=== PATIENT | male | born 2000 | race Caucasian/White ===

== ENCOUNTER 2025-03-23 20:24 | Emergency (ER) | payer OTHER, SELFPAY ==
[2025-03-23 20:25] VITALS: BP 117/81; PULSE 122; RESP 17; TEMP 36.8; O2SAT 96; BMI 22.2
--- NOTE | 2025-03-23 21:13 | ED.RN ---
intermittent chest pain for the last few weeks. the last two days have been worse. 6/10 constricting chest pain with intermittent shortness of breath both worsening with exertion or singing.
[2025-03-23 21:25] VITALS: BP 105/69; PULSE 68; RESP 16; O2SAT 95
[2025-03-23 21:58] VITALS: O2SAT 95
--- NOTE | 2025-03-23 21:58 | RAD_ITS ---
PROCEDURE: CHEST 1 VIEW (PORTABLE) 03/23/2025 REASON FOR EXAM: CHEST PAIN TECHNIQUE: Frontal view of the chest. COMPARISON: None. FINDINGS: Hardware: No internal hardware. Heart: Normal size Lungs: Clear and expanded Bones: No aggressive bony process Other: RAD/Chest 1 View (Portable) IMPRESSION: No acute process detected. Reading Location: [facility]
--- NOTE | 2025-03-23 21:58 | EKG12_ITS ---
Test Reason : CP Blood Pressure : */* mmHG Vent. Rate : 88 BPM Atrial Rate : 88 BPM P-R Int : 162 ms QRS Dur : 86 ms QT Int : 332 ms P-R-T Axes : 84 121 68 degrees QTcB Int : 401 ms Normal sinus rhythm Right axis deviation Possible Right ventricular hypertrophy Abnormal ECG Confirmed by MG VAZQUEZ, ZOË ([id number]), business editor NAUN MONROE ([id number]) on 03/24/2025 1:10:03 PM Referred By: THI Confirmed By: ZOË HOLLIDAY MD
[2025-03-23 22:00] VITALS: BP 105/75; PULSE 57; RESP 15; O2SAT 96
--- NOTE | 2025-03-23 22:01 | PCA ---
NO OLD EKG
[2025-03-23 22:11] LABS: Hematocrit 42.9 % (40-54); Hemoglobin 15.0 g/dL (13.0-16.5); Immature Granulocytes Count 0.010 X10^3/uL (0.0-0.0); Mean Corp Hgb Conc 35.0 g/dL (32-36); Mean Corpuscular Volume 87.9 fL (80-94); Mean Platelet Vol. 9.6 fl (6.2-12.0); NRBC Flagged by Analyzer 0 % (0-5); Platelet Count 163 K/mm3 (150-450); RBC Distribution Width CV 11.9 % (11.6-14.6); RBC Distribution Width SD 38.5 fl (35.1-43.9); Red Blood Count 4.88 M/mm3 (4.6-6.2); White Blood Count 5.4 K/mm3 (4.4-11.0)
--- NOTE | 2025-03-23 22:25 | EDS_ITS ---
HPI History of Present Illness Chief Complaint: Chest Pain Narrative Narrative: 25-year-old male who denies significant past medical history presents with chest pain that he has had over the last week or 2, but worse over the last 2 days. He states has been relatively constant over the last 2 days. He associates this with shortness of breath but perhaps slight nausea but no vomiting. No leg swelling. Denies DVT or PE risk factors. No family history of early coronary artery disease. No fevers but he may have been chilled. No cough. PFSH PFSH Medical History no medical history no medical history Home Medications ?Medication ?Instructions ?Recorded ?Last Taken ?Type NK 03/23/25 Unknown History Allergy/AdvReac Type Severity Reaction Status Date / Time No Known Allergies Allergy Verified 03/23/25 20:29 Social History Smoking Status: Never smoker ROS ROS ED ROS Narrative Review of systems positive for midsternal and central chest pain without radiation. No vomiting. No diaphoresis. No fever but may have felt chilled. No cough. No leg swelling. Questionable worsening of symptoms with exertion. EXAM Physical Exam Narrative Exam Narrative: Afebrile. Vital signs noted. Nontoxic-appearing. Cardiovascular examination on my examination reveals a regular rate and rhythm. No murmurs rubs or gallops appreciated. Lungs are clear to auscultation bilaterally. The abdomen is soft and nontender with normal active bowel sounds. No guarding or rebound. Ne urological examination nonfocal, nonlateralizing. No appreciable pedal edema. Const Vital Signs: 03/23/25 20:25 03/23/25 21:25 03/23/25 21:58 Temperature 98.2 F Temperature Source Oral Pulse Rate 122 H 68 Respiratory Rate 17 16 Blood Pressure 117/81 H 105/69 Blood Pressure Mean 93 81 Pulse Ox 96 95 95 Oxygen Delivery Method Room Air Room Air Room Air 03/23/25 22:00 03/23/25 23:00 03/23/25 23:58 Temperature Temperature Source Pulse Rate 57 L 58 L 57 L Respiratory Rate 15 15 15 Blood Pressure 105/75 106/66 107/71 Blood Pressure Mean 85 79 83 Pulse Ox 96 95 95 Oxygen Delivery Method Room Air Room Air Room Air MDM MDM MDM Narrative Medical decision making narrative: The differential diagnosis includes but not limited to ACS versus pulmonary embolism versus pneumonia versus pneumothorax. History and physical does not support the latter 2 diagnoses. Comprehensive workup was pursued. Initially in triage he was tachycardic, but currently he is bradycardic. EKG was obtained and interpreted by myself independently as normal sinus rhythm at 88 bpm without ectopy or acute ST changes. No STEMI. I reviewed the patient's laboratory work and he has normal white count of 5.4 with hemoglobin 15.0, hematocrit 42.9, platelet count normal at 163. D-dimer is negative at less than 0.27. I do not feel that he requires CTA of the chest. BMP is grossly unremarkable except for BUN of 20 with normal creatinine of 0.76. Kos normal at 84. Initial high-sensitivity troponin is less than 6. Chest x-ray in 1 view interpreted by myself shows no acute process. No pneumonia, no pneumothorax. I reviewed the radiology report which confirms my independent interpretation. Multiple repeat examinations show that he states that there has been no significant change in his condition and he feels the same. He was also given a GI cocktail and reexamined and states that he feels the same as well. While I do feel that this troponin is more than likely greater than a 6-hour troponin, 2-hour troponin will be obtained and reviewed as well. In discussion with the patient and his . They are requesting that echocardiogram be performed as they state that their primary care provider has been working up his chest pain, and they state that is the reason why they are here is to have an echocardiogram performed. I informed them that the patient's workup does not merit/there is no indication for stat echocardiogram from the emergency department and that it is not a routine test. As long as his second troponin is negative, that they should return to his primary care provider for her to order an outpatient echocardiogram. His repeat troponin did return at less than 6 for an acceptable delta. Additionally, I do not feel he requires observation or admission at this time. Return instructions to the emergency department were reviewed. Disposition is discharged home in stable condition. History & Record Review Discussion w/independent historian: Patient Additional record(s) reviewed:: No prior records Lab Data Attestation: I reviewed the patient's lab results. Labs: Laboratory Results - last 24 hr 03/23/25 03/23/25 20:46 23:24 WBC 5.4 RBC 4.88 Hgb 15.0 Hct 42.9 MCV 87.9 MCH 30.7 MCHC 35.0 RDW Std Deviation 38.5 RDW Coeff of Debbie 11.9 Plt Count 163 MPV 9.6 Immature Gran % (Auto) 0.200 Neut % (Auto) 55.9 Lymph % (Auto) 33.0 Alfalfa % (Auto) 9.4 Eos % (Auto) 1.1 Baso % (Auto) 0.4 Absolute Neuts (auto) 3.0 Absolute Lymphs (auto) 1.78 Nucleated RBC % 0 D-Dimer Quant (PE/DVT) < 0.27 L Sodium 140 Potassium 3.7 Chloride 101 Carbon Dioxide 26.6 Anion Gap 13 BUN 20 H Creatinine 0.76 Estim Creat Clear Calc 131.55 Est GFR (MDRD) Non-Af 128 BUN/Creatinine Ratio 25.9 H Glucose 84 Calcium 9.6 Troponin T High Sens < 6 Troponin T Hi Sens 2 Hr < 6 Radiography Chest X-Ray - ED: 1 View, Read by ED Physician, Read by Radiologist and No Acute Disease Diagnostic Testing: Clinical Impression(s) from Imaging Studies Chest X-Ray 03/23/25 21:58 IMPRESSION: No acute process detected. Reading Location: [facility] Discharge Plan Triage Chief Complaint: Chest Pain ED Provider: Vinayak Fontaine Dx/Rx/DC Orders Clinical Impression: Chest pain, SOB (shortness of breath) Instructions: ED Chest Pain, Uncertain Cause, ED Dyspnea Prescriptions: No Action NK Primary Care Provider: Mariel Tavares NP Referrals: Mariel Tavares CADASTRAL SURVEYOR, CADASTRAL SURVEYOR-C [Primary Care Provider] - 3-5 Days Activity Restrictions/Additional Instructions: Follow-up with your primary care provider as soon as possible. You had negative cardiac enzymes today as well as screen for blood clot which was negative as well. Print Language: Tajik Disposition Disposition: Home, Self Care
[2025-03-23 22:26] LABS: D-Dimer Quantitative (DVT/PE) < 0.27 FEU/ug/m (0.27-0.49)
--- OUTSIDE RECORDS SUMMARY | 2025-03-23 22:26 | XMS RPT_ITS | CCD ---
Author Organization [facility] Care Team Providers Care Irrigationist Designer Name Role Phone SHRUTHI FERRER, KENDRA Primary Care Physician ( [phone] SHRUTHI FERRER, KENDRA Attending Leathaa ble SHRUTHI FERRER, KENDRA Primary Care Unavaila ble SHRUTHI FERRER, KENDRA Primary Care Unavaila ble SHRUTHI FERRER, KENDRA Attending Unavaila ble Results Test Name Value Interpretation Reference Range Facil ity XR CHEST 2 VIEWSon XR CHEST 2 VIEWS ORIGINAL EXAMINATION: TWO XRAY VIEWS OF THE CHEST 02/21/2025 4:12 pm COMPARISON: None. HISTORY: ORDERING SYSTEM PROVIDED HISTORY: Reason for Exam: SOB FINDINGS: Normal cardiomediastinal silhouette. Clear lungs, sharp costophrenic angles. No pneumothorax. Intact bones. IMPRESSION: Normal study Interpreted by: Ozzy Alanis Preliminary Report By: Ozzy Alanis Electronically signed By Ozzy Alanis Dictated Date: 02/23/2025 12:09:13 PM Prelim Date: 02/23/2025 12:09:40 PM Sign Date: 02/23/2025 12:09:40 PM Ordering Provider: KENDRA Galeas [facility] Encounters Encounter Date Encounter Type Care Provider Facility Start: 02-25-2025 ambulatory KENDRA FERRER Facility:[facility] Start: 02-21-2025 End: 02-21-2025 ambulatory KENDRA FERRER Facility:[facility] Start: 02-21-2025 End: 02-21-2025 Patient encounter procedure KENDRA FERRER [facility] Payers Date Payer Category Payer Private Health Insurance [id number] 2025 Self-pay 2025 Unknown 165 2000 Unknown [id number] 2000 Unknown [id number] Social History Date Type Detail Facility Tobacco smoking status [facility] Sex Assigned At Male [facility] Start: 02-21-2025 Sex Male (finding) [facility] Evaluation + Plan note Note Date & Type Note Facility Evaluation + Plan note Future Appointments Appointment Date:03/26/2025 04:00:00 PM Scheduled Provider: Location:[facility] Appointment Type:Echo - Echocardiogram Adult [facility] Hospital course Narrative Note Date & Type Note Facility Hospital course Narrative No data available for this section [facility] Hospital Discharge instructions Note Date & Type Note Facility Hospital Discharge instructions No data available for this section [facility] Summary Purpose Family History No Family History Records Found Advance Directives No Advanced Directives Records Found Additional Source Comments Patient Care team informatio n (unrecognized section and content) Care Team Personnel Name: KENDRA HAWKINS Member Role: Primary Care Physician Address: [address] [place] [address] Telecom: (unrecognized sect ion and content) No Status Records Found INFORMATION SOURCE (unrecogn ized section and content) DATE CREATED AUTHOR 02/27/2025 [facility] FOR RECORDS PERTAINING TO PATIENTS WHO ARE OR HAVE BEEN ENROLLED IN A CHEMICAL DEPENDENCY/SUBSTANCEABUSE PROGRAM, SOME INFORMATION MAY BE OMITTED. This clinical summary was aggregated from multiple sources. Caution should be exercised in using it in the provision of clinical care. This summary normalizes information from multiple sources, and as a consequence, information in this document may materially change the coding, format and clinical context of patient data. In addition, data may be omitted in some cases. CLINICAL DECISIONS SHOULD BE BASED ON THE PRIMARY CLINICAL RECORDS. [facility] [employer] [facility]. provides no warranty or guarantee of the accuracy or completeness of information in this document.
[2025-03-23 22:28] LABS: Anion Gap 13 (5-15); BUN 20 mg/dL (4-19); BUN/Creat Ratio 25.9 RATIO (10-20); Calcium,Total 9.6 mg/dL (7.6-11.0); Carbon Dioxide 26.6 mmol/L (21.0-32.0); Chloride 101 mmol/L (98-108); Estimated Creatinine Clearance 131.55 ml/min (50-250); Glucose 84 mg/dL (70-99); Potassium 3.7 mmol/L (3.3-5.1); Troponin T High Sensitivity < 6 ng/L (<=22)
[2025-03-23 23:00] VITALS: BP 106/66; PULSE 58; RESP 15; O2SAT 95
[2025-03-23 23:58] VITALS: BP 107/71; PULSE 57; RESP 15; O2SAT 95
[2025-03-24 00:03] LABS: Troponin T High Sens 2 HR < 6 ng/L (<=22)
[2025-03-24 00:16] VITALS: BP 110/68; PULSE 61; RESP 16; TEMP 36.7; O2SAT 97
== END 2025-03-24 00:20 | disposition home or self-care (01) ==
PROVIDERS: Emergency Provider Emergency Medicine; PCP Nurse Practitioner Family; Visit Provider Emergency Medicine
DX: R07.9 Chest pain, unspecified (principal); R06.02 Shortness of breath
CPT/HCPCS: 71045; 80048; 84484; 85025; 85379; 93005; 99285; A4216